=== PATIENT | female | born 1995 | race Caucasian/White ===

== ENCOUNTER 2018-01-12 08:19 | Emergency (ER) | payer OTHER ==
[~2018-01-12] VITALS: Ht 175.3 cm; Wt 59.0 kg
[~2018-01-12 08:19] MED LIST: ACETAMINOPHEN-1 EAC1 PO; AMOXICILLIN 50500 MG; BACTRIM DS TAB1 EACH PO; CARISOPRODOL 3350 MG PO; CIPROFLOXACIN500 M1 PO; COMBIVIR TABLE1 EACH PO; HYCET 7.5 MG-3473 ML PO; HYDROCODONE-APA1 TA1; IBUPROFEN 600600 M1 PO; LIDOCAINE VISC100 M1 SWISH&SPIT; NOHOMEMEDICATIONS; NORCO 5-325 TA1 EAC1 PO; NORCO 5-325 TA1 EACH PO; PENICILLIN V P500 MG PO; PRENATAL PO; ZOFRAN ODT4 MG PO
[2018-01-12 08:43] LABS: URINE BILIRUBIN NEGATIVE (Negative); URINE BLOOD NEGATIVE (Negative); URINE CLARITY CLEAR; URINE COLOR YELLOW; URINE GLUCOSE-RANDOM NEGATIVE (Negative); URINE KETONES NEGATIVE (Negative); URINE LEUKOCYTES-REFLEX NEGATIVE (Negative); URINE PROTEIN NEGATIVE (Negative); URINE SPECIFIC GRAVITY 1.025 (1.005-1.030); URINE UROBILINOGEN 0.2 E.U./dl (0.2-1.0)
[2018-01-12 08:47] LABS: URINE NITRITE-REFLEX POSITIVE (Negative)
[2018-01-12 08:53] LABS: SQUAMOUS 4-10 Moderate /LPF (0-3)
[2018-01-12 08:54] LABS: CASTS None Seen /LPF (None Seen); CRYSTALS None Seen /LPF (None Seen); MUCUS >6 Heavy strn/LPF (None Seen); URINE RBC None Seen /HPF (0-2); URINE WBC-REFLEX None Seen /HPF (0-5)
[2018-01-12 09:21] LABS: ABSOLUTE BASOPHILS 0.1 thou/uL (0.0-0.2); ABSOLUTE EOSINOPHILS 0.2 thou/uL (0.0-0.7); ABSOLUTE LYMPHOCYTES 1.7 thou/uL (0.8-5.3); ABSOLUTE MONOCYTES 0.5 thou/uL (0.0-1.2); ABSOLUTE NEUTROPHILS 5.3 thou/uL (1.6-8.1); BASOPHILS 0.7 %; EOSINOPHILS 2.1 %; HEMATOCRIT 40.4 % (37.0-47.0); HEMOGLOBIN 13.7 gm/dL (12.0-15.0); LYMPHOCYTES 22.4 %; MCH 31.2 pg (26.0-34.0); MCV 91.8 fL (80.0-100.0); MONOCYTES 6.5 %; MPV 8.4 fl. (7.2-11.1); NUCLEATED RBCS 0 /100WBC; PLATELET COUNT* 233 thou/uL (150-400); POLYS 68.3 %; RBC 4.41 mil/uL (4.20-5.00); RDW-CV 12.3 % (10.5-14.5); WBC 7.8 thou/uL (4.0-11.0)
[2018-01-12 09:29] LABS: CALCIUM 8.9 mg/dL (8.5-10.1); CREATININE 0.6 mg/dL (0.6-1.3); POTASSIUM 3.8 mmol/L (3.5-5.1)
[2018-01-12 09:33] LABS: ALBUMIN 3.8 g/dL (3.4-5.0); TOTAL BILIRUBIN 0.4 mg/dL (<0.1-1.0); TOTAL PROTEIN 6.9 g/dL (6.4-8.2)
[2018-01-12] MEDS ORDERED: MOBIC15 MG PO (10:07)
[2018-01-12] MEDS ORDERED: KEFLEX500 M1 PO (10:24)
[2018-01-12 10:27] LABS: ESR (SEDRATE) 4 mm/hr (0-20)
[2018-01-12 10:38] VITALS: BP 133/80
== END 2018-01-12 10:39 | disposition home or self-care (01) ==
LOC: M.ERS 08:19
PROVIDERS: Personal Emergency Response Attendant
DX: N39.0 Urinary tract infection, site not specified (principal); F17.210 Nicotine dependence, cigarettes, uncomplicated